=== PATIENT | female | born 1995 | race Caucasian/White ===

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

== ENCOUNTER 2017-01-06 21:00 | Outpatient (CLI) | payer OTHER ==
[~2017-01-06] VITALS: Ht 157.5 cm; Wt 86.6 kg
[~2017-01-06 21:00] MED LIST: PRENAT PO
[2017-01-06] MEDS ORDERED: ONDANSETRON 4 MG INJ IV STA (21:33)
[2017-01-06 21:52] LABS: ADD UMIC NO; URINE BILIRUBIN (Dip) NEGATIVE (NEGATIVE); URINE BLOOD (Dip) NEGATIVE (NEGATIVE); URINE COLOR LT. YELLOW (YELLOW); URINE GLUCOSE (Dip) NEGATIVE (NEGATIVE); URINE KETONES (Dip) NEGATIVE (NEGATIVE); URINE LEUKOCYTE ESTERASE (Dip) NEGATIVE (NEGATIVE); URINE NITRITE (Dip) NEGATIVE (NEGATIVE); URINE TOTAL PROTEIN (Dip) NEGATIVE (NEGATIVE); URINE UROBILINOGEN (Dip) 1.0 E.U./dL (0.1-1.0)
[2017-01-06] MEDS ORDERED: LACTATED RINGER'S 1,000 ML IV ONE (22:00)
[2017-01-06] MEDS ORDERED: LACTATED RINGER'S 1,000 ML IV SCH (22:00)
[2017-01-06 22:03] VITALS: BP 110/54; PULSE 75; RESP 18
[2017-01-06 22:04] LABS: ADD SCAN DIFF NO
[2017-01-06 22:06] LABS: BASOPHILS % 0.1 % (0.0-2.0); EOSINOPHILS # 0.1 10^3/ul (0.0-0.5); HEMATOCRIT 28.5 % (37.0-47.0); HEMOGLOBIN 9.7 g/dl (12.0-16.0); LYMPHOCYTES # 1.3 10^3/ul (0.8-2.9); LYMPHOCYTES % 15.7 % (18.0-55.0); MEAN CORPUSCULAR VOLUME 88.2 fl (72.0-104.0); MEAN PLATELET VOLUME 9.7 fl (7.4-10.4); MONOCYTE # 0.6 10^3/ul (0.3-0.9); MONOCYTES % 7.9 % (0.0-13.0); NEUTROPHILS % 74.8 % (30.0-74.0); PLATELET COUNT 319 10^3/UL (140-415); RED BLOOD COUNT 3.23 10^6/ul (4.20-5.40); RED CELL DISTRIBUTION WIDTH 12.9 % (11.5-14.5)
[2017-01-06 22:21] LABS: ALBUMIN 3.2 g/dl (3.3-4.9); POTASSIUM 3.3 mmol/L (3.5-5.1)
[2017-01-06 22:24] LABS: ALBUMIN/GLOBULIN RATIO 0.96; BILIRUBIN,INDIRECT 0.1 mg/dl (0-1.1); BILIRUBIN,TOTAL 0.1 mg/dl (0.2-1.3); CALCIUM 8.5 mg/dl (8.4-10.2); CREATININE 0.36 mg/dl (0.44-1.00); TOTAL PROTEIN 6.5 g/dl (6.1-8.1)
--- NOTE | 2017-01-06 23:06 | RADRPT ---
PROCEDURE: Ultrasound of the abdomen. CLINICAL INDICATION: Right upper quadrant pain. TECHNIQUE: Sonographic images of the abdomen were performed. COMPARISON: No pertinent prior examinations were submitted for comparison. FINDINGS: Liver: The liver is mildly increased in echogenicity and enlarged, measuring approximately 17.5 cm. The hepatic veins and portal veins are patent with appropriate directional flow. No intrahepatic du ctal dilatation is seen. Gallbladder: The gallbladder is not distended and has normal wall thickness. Multiple stones are no nikko within the gallbladder. No definite pericholecystic free fluid is seen. The common duct measure s 4.0 mm. Pancreas: There is limited evaluation of the pancreatic body and tail. The visualized portions of the pancreas are unremarkable. Kidneys: The right kidney measures 11.3 cm. There is normal corticomedullary differentiation. Ther e is no evidence of renal calculus or hydronephrosis. IVC: The visualized portion of the inferior vena cava is unremarkable. Aorta: Normal in size. Free fluid: None. IMPRESSION: Hepatomegaly and hepatic steatosis. Cholelithiasis. RPTAT: HIKT .Jose Khanna MD, Date Time Electronically viewed and signed by .Jose Khanna MD, on 01/06/2017 23:06 .T/
[2017-01-06] MEDS ORDERED: morphine 4 MG/ML VIAL IV ONE (23:25)
[2017-01-06] MEDS ORDERED: CEFTRIAXONE 1 GM/50 ML (PMX) 50 ML IVPB ONE (23:30)
[2017-01-06] MEDS ORDERED: SOD CHLORIDE 0.9% 1,000 ML IV SCH (23:30)
--- NOTE | 2017-01-07 02:41 | TRIAGE ---
OB Triage Datetime Report Generated by CPN: 01/07/2017 02:41 Datetime: 01/07/2017 02:13 Pain Assessment Pain Scale: 2 Pain Presence: Constant Pain Type: Ache Pain Location: Abdomen Datetime: 01/07/2017 01:20 Labor Evaluation Frequency: 0 Monitor Mode: External Resting Tone [place]: Relaxed Pain Assessment Pain Scale: 3 Pain Presence: Constant Pain Type: Stabbing; Pressure Pain Location: Abdomen Datetime: 01/07/2017 00:35 Stage of : OB Triage Monitor Mode: External Resting Tone [place]: Relaxed Pain Assessment Pain Scale: 4 Pain Presence: Constant Pain Type: Sharp Pain Location: Abdomen Datetime: 01/06/2017 23:55 Pain Assessment Pain Scale: 9 Pain Presence: Constant Pain Type: Sharp; Stabbing Pain Location: Abdomen Datetime: 01/06/2017 22:55 Stage of : OB Triage Nausea/Vomiting: Hx of Nausea/Vomiting Monitor Mode: External Quality: Mild Pattern: Normal: <= 5 Contractions in 10 Minutes Resting Tone [place]: Relaxed Heart Rate FHR Baseline Rate: 140 Monitor Mode: External US FHR Baseline Changes: No Baseline Change Variability: Moderate 6-25 bpm Category: Category I Pain Assessment Pain Scale: 8 Pain Presence: Constant Pain Type: Sharp Pain Location: Abdomen Pain Assessment Comments: Pt states nausea better but cont inued pain Datetime: 01/06/2017 22:18 Monitor Mode: External Quality: Mild Pattern: Normal: <= 5 Contractions in 10 Minutes Resting Tone [place]: Relaxed Heart Rate FHR Baseline Rate: 145 Monitor Mode: External US FHR Baseline Changes: No Baseline Change Variability: Moderate 6-25 bpm Accelerations: 10X10 Category: Category I Datetime: 01/06/2017 21:30 Stage of : OB Triage Comments: Baby very difficult to monitor d/t GA and pt position Datetime: 01/06/2017 21:20 Time of Arrival: 01/06/2017 20:53 EGA: 24.0 Arrived By: Wheelchair Arrived From: Home Chief Complaint: w/ c/o gallbladder pain and low blood pressure Movement: Present Contractions: Denies/Absent Rupture of Membranes: Denies Vaginal Bleeding: None Vaginal Discharge: Denies Recent Sexual Intercouse: Denies Abdominal Trauma: Not Applicable Patient Complaints: Nausea; Vomiting; Epigastric Pain Time Provider Notified: 01/06/2017 21:30 Provider Notified: Dr Prescott Initial Plan: IV hydration, labs, abd u/s Datetime: 01/06/2017 21:08 Stage of : OB Triage Maternal Assessment Level of Consciousness: Fully Conscious Headache: Denies Blurred Vision: No Nausea/Vomiting: Present RUQ Epigastric Pain: Present Facial Edema: None Labor Evaluation Frequency: placed Monitor Mode: External Resting Tone [place]: Relaxed Monitor Mode: External US Comments: FHT 150 Pain Assessment Pain Scale: 9 Pain Presence: Constant Pain Type: Sharp; Stabbing Pain Location: Abdomen Pain Assessment Comments: Pt states "gallstone pain" Datetime: 12/25/2016 18:19 Stage of : OB Triage Datetime: 12/25/2016 18:03 Stage of : OB Triage Assessment Type: Triage Maternal Assessment Level of Consciousness: Fully Conscious DTR's/Clonus: DTRs 2+; No Clonus Headache: Denies Blurred Vision: No Respiratory Effort: Unlabored; Regular Rhythm; Equal Expansion Breath Sounds, Left: Clear and Equal Breath Sounds, Right: Clear and Equal Nausea/Vomiting: Denies RUQ Epigastric Pain: Denies Facial Edema: None Temperature Route: Axillary Fall Risk Assessment History of Falling: (0) No Secondary Diagnosis: (0) No Ambulatory Aid: (0) Bedrest/Nurse Assist IV Therapy: (0) No Gait: (0) Normal/Bedrest/Immobile Mental Status: (0) Oriented to Own Ability Fall Score: 0 Fall Risk Score Definition: No Risk: No action required Heart Rate FHR Baseline Rate: 155 Monitor Mode: External US Variability: Moderate 6-25 bpm Decelerations: None Pain Assessment Pain Scale: 0 Pain Presence: None/Denies Pain Type: N/A Pain Goal: 3 Pain Relief Measures: Comfort Measures Datetime: 12/25/2016 18:02 EGA: 21.2 Datetime: 12/25/2016 17:59 Time of Arrival: 12/18/2016 17:25 Arrived By: Ambulatory Arrived From: Home Chief Complaint: STATES WAS SENT BY DR. PRESCOTT OFFICE FOR U/A C_S. WAS AT [facility] 2-3 DAYS AGO A ND GIVEN PRESCRIPTION FOR UTI. , DENIES BLEEDING OR LEAKING OF FLUID Movement: Present Contractions: Irregular Rupture of Membranes: Denies Vaginal Bleeding: None Vaginal Discharge: Denies Recent Sexual Intercouse: Yes Abdominal Trauma: Not Applicable Patient Complaints: None Time Provider Notified: 12/25/2016 17:35 Provider Notified: GENIE Initial Plan: MONITOR, X 10 MIN. U/A C_S
--- NOTE | 2017-01-07 07:11 | PN ---
Date/Time of Note Date/Time of Note DATE: 01/07/17 TIME: 05:41 OB Subjective Subjective Subjective c/o severe RUQ pain 9/10 vomiting x4 stayed in [facility] few days recently for same problem OB Objective Objective Objective vss afebrile rt CVA +++tenderness RUQ and epigatrium tenderness abdomen soft no usterine contraction result U/A neg wbc 8000 cmp nl u/s abdomen cholelithiasis no inflamation HEENT: WNL Heart: Rhythm Normal Lungs: Clear, Equal Abdomen: WNL Extremities: Normal Reflexes: Normal OB Assessment/Plan Other Assessment: IUP 24W RUQ PAIN VOMITING Other plan: IV hydration rocephin 1gm M-S- - - -4-m-g- -d--/--s- -h-o-m-yao- NOELLE PRESCOTT MD January 07, 2017 07:11
== END 2017-01-07 02:27 | disposition home or self-care (01) ==
LOC: OBT 21:00 → L-D 21:01 → OBT 01-07 02:27
PROVIDERS: ATTEND Obstetrics & Gynecology
DX: O26.892 Other specified pregnancy related conditions, second trimester (principal); R10.11 Right upper quadrant pain; O21.2 Late vomiting of pregnancy; O99.612 Diseases of the digestive system complicating pregnancy, second trimester; K80.20 Calculus of gallbladder without cholecystitis without obstruction; Z3A.24 24 weeks gestation of pregnancy
CPT/HCPCS: 76705; 80053; 81003; 82150; 83690; 85025; 87086; J0696; J2270; J2405; J7030; J7120; 36415; 96360; 96361; 96365; 96374; 96375; G0463

== ENCOUNTER 2017-02-12 17:34 | Outpatient (CLI) | payer OTHER ==
[~2017-02-12] VITALS: Ht 157.5 cm; Wt 89.8 kg
[2017-02-12 17:55] VITALS: Ht 157.5 cm; Wt 89.8 kg
[2017-02-12 17:56] VITALS: BP 101/52; PULSE 78; RESP 18
[2017-02-12 18:41] LABS: ADD UMIC NO; UR BILIRUBIN (Dip) NEGATIVE (NEGATIVE); UR BLOOD (Dip) NEGATIVE (NEGATIVE); UR CLARITY CLEAR (CLEAR); UR COLOR LT. YELLOW (YELLOW); UR GLUCOSE (Dip) NEGATIVE (NEGATIVE); UR KETONES (Dip) NEGATIVE (NEGATIVE); UR LEUKOCYTE ESTERASE (Dip) NEGATIVE (NEGATIVE); UR NITRITE (Dip) NEGATIVE (NEGATIVE); UR TOTAL PROTEIN (Dip) NEGATIVE (NEGATIVE); UR UROBILINOGEN (Dip) 1.0 E.U./dL (0.1-1.0)
--- NOTE | 2017-02-12 18:44 | RADRPT ---
PROCEDURE: Ultrasound OB cervical length CLINICAL INDICATION: Contractions. Pain. TECHNIQUE: Sonographic evaluation to assess the cervical length was performed. Transabdominal and transvaginal imaging of the gravid uterus was performed. COMPARISON: Abdominal ultrasound dated 01/06/2017. FINDINGS: Single live intrauterine with cardiac activity is identified with a heart rate of 13 9 beats per minute. There is a cephalic lie and an anterior, grade 0 placenta. The cervical length e quals approximately 3.6 cm, within normal limits. IMPRESSION: 1. Cervical length equals 3.6 cm. 2. Single viable intrauterine gestation. RPTAT: HLBP .Bhupendra Lazcano MD, MD Date Time Electronically viewed and signed by .Bhupendra Lazcano MD, on 02/12/2017 18:44 .P/
[2017-02-12] MEDS ORDERED: LACTATED RINGER'S 1,000 ML IV* SCH (20:30)
[2017-02-12 21:12] LABS: ADD SCAN DIFF NO
[2017-02-12 21:13] LABS: BASOPHILS % 0.1 % (0.0-2.0); EOSINOPHILS # 0.1 10^3/ul (0.0-0.5); EOSINOPHILS % 0.5 % (0.0-7.0); HEMATOCRIT 25.4 % (37.0-47.0); HEMOGLOBIN 8.5 g/dl (12.0-16.0); LYMPHOCYTES # 1.6 10^3/ul (0.8-2.9); LYMPHOCYTES % 16.8 % (18.0-55.0); MEAN CORPUSCULAR HEMOGLOBIN 28.7 pg (29.0-33.0); MEAN CORPUSCULAR HGB CONC 33.5 g/dl (32.0-37.0); MEAN CORPUSCULAR VOLUME 85.8 fl (72.0-104.0); MEAN PLATELET VOLUME 9.6 fl (7.4-10.4); MONOCYTE # 0.6 10^3/ul (0.3-0.9); MONOCYTES % 6.3 % (0.0-13.0); NEUTROPHIL # 7.2 10^3/ul (1.6-7.5); NEUTROPHILS % 75.8 % (30.0-74.0); PLATELET COUNT 317 10^3/UL (140-415); RED BLOOD COUNT 2.96 10^6/ul (4.20-5.40); RED CELL DISTRIBUTION WIDTH 12.6 % (11.5-14.5); WHITE BLOOD COUNT 9.5 10^3/ul (4.8-10.8)
[2017-02-12 21:40] LABS: ALBUMIN/GLOBULIN RATIO 1.42; BILIRUBIN,INDIRECT 0.1 mg/dl (0-1.1); BILIRUBIN,TOTAL 0.1 mg/dl (0.2-1.3); CREATININE 0.47 mg/dl (0.44-1.00); POTASSIUM 3.8 mmol/L (3.5-5.1); TOTAL PROTEIN 6.8 g/dl (6.1-8.1)
--- NOTE | 2017-02-12 22:53 | PN ---
Triage Information Date/Time 02/12/17 Weeks of Gestation 29w2d : 1 Para: 0 Diabetes: none Hypertention: none Additional information c/o lower abdominal cramping pain with pressure pain level 10/10 intermittent Objective CVA neg abdomen soft no tenderness Vital Signs Date Time Temp Pulse Resp B/P Pulse Ox O2 Delivery O2 Flow Rate FiO2 02/12/17 17:56 98.4 78 18 101/52 Room Air Heart Rate: 140's Contractions: None Results/Medications Result Diagram: 02/12/17210102/12/172101 Results 24 hrs Laboratory Tests Test 02/12/17 17:45 02/12/17 21:02 Urine Color LT. YELLOW Urine Clarity CLEAR Urine pH 6.5 Urine Specific [place] 1.015 Urine Ketones NEGATIVE Urine Nitrite NEGATIVE Urine Bilirubin NEGATIVE Urine Urobilinogen 1.0 E.U./dL Urine Leukocyte Esterase NEGATIVE Urine Hemoglobin NEGATIVE Urine Glucose NEGATIVE Urine Total Protein NEGATIVE White Blood Count 9.5 Red Blood Count 2.96 L Hemoglobin 8.5 L Hematocrit 25.4 L Mean Corpuscular Volume 85.8 Mean Corpuscular Hemoglobin 28.7 L Mean Corpuscular Hemoglobin Concent 33.5 Red Cell Distribution Width 12.6 Platelet Count 317 Mean Platelet Volume 9.6 Neutrophils % 75.8 H Lymphocytes % 16.8 L Monocytes % 6.3 Eosinophils % 0.5 Basophils % 0.1 Nucleated Red Blood Cells % 0.0 Neutrophils # 7.2 Lymphocytes # 1.6 Monocytes # 0.6 Eosinophils # 0.1 Basophils # 0.0 Nucleated Red Blood Cells # 0.0 Sodium Level 137 Potassium Level 3.8 Chloride Level 107 Carbon Dioxide Level 21 Anion Gap 13 Blood Urea Nitrogen 6 L Creatinine 0.47 Glucose Level 79 Calcium Level 9.0 Total Bilirubin 0.1 L Direct Bilirubin 0.00 Indirect Bilirubin 0.1 Aspartate Amino Transf (AST/SGOT) 18 Alanine Aminotransferase (ALT/SGPT) 30 Alkaline Phosphatase 160 H Total Protein 6.8 Albumin 4.0 Globulin 2.80 Albumin/Globulin Ratio 1.42 Medications Current Medications Lactated Ringer's (Lr) 1,000 ml @ 125 mls/hr Q8H IV* Last administered on 02/12t 21:03; Admin Dose 125 MLS/HR; Start 02/12/17 at 20:30 Imaging Results CVL 3.6 Assessment/Plan IUP 29w2d pelvic pain resolved after IV hydration plan discharge home with instruct to increase fluid intakeand routine labor intructions NOELLE PRESCOTT MD Feb 12, 2017 22:53
--- NOTE | 2017-02-13 01:12 | TRIAGE ---
OB Triage Datetime Report Generated by CPN: 02/13/2017 01:11 Datetime: 02/12/2017 19:08 Monitor Mode: External Monitor Mode: External US Datetime: 02/12/2017 18:17 Labor Evaluation Frequency: none Monitor Mode: External Resting Tone [place]: Relaxed Contraction Comments: no ucs contractions noted at this time Heart Rate FHR Baseline Rate: 135 Monitor Mode: External US Variability: Moderate 6-25 bpm Decelerations: None Category: Category I Datetime: 02/12/2017 18:04 Stage of : OB Triage Datetime: 02/12/2017 17:53 Assessment Type: Triage Maternal Assessment Level of Consciousness: Fully Conscious DTR's/Clonus: DTRs 2+; No Clonus Headache: Bilateral Blurred Vision: No Respiratory Effort: Unlabored; Regular Rhythm; Equal Expansion Breath Sounds, Left: Clear and Equal Breath Sounds, Right: Clear and Equal Nausea/Vomiting: Hx of Nausea/Vomiting (Annotations: states vomitted 3x today) RUQ Epigastric Pain: Denies Lower Extremities Edema: None Upper Extremities Edema: None Facial Edema: None Fall Risk Assessment History of Falling: (0) No Secondary Diagnosis: (0) No Ambulatory Aid: (0) Bedrest/Nurse Assist IV Therapy: (0) No Gait: (0) Normal/Bedrest/Immobile Mental Status: (0) Oriented to Own Ability Fall Score: 0 Fall Risk Score Definition: No Risk: No action required Datetime: 02/12/2017 17:50 Time of Arrival: 02/12/2017 17:32 EGA: 29.2 Arrived By: Ambulatory Arrived From: Home Chief Complaint: cramping and back pain since last night - states took tylenol earlier today. garett es any bleeding. states white/yellowish foul smelling discharge Movement: Present Rupture of Membranes: Denies Vaginal Bleeding: None Vaginal Discharge: Present Recent Sexual Intercouse: Denies Abdominal Trauma: Not Applicable Patient Complaints: Cramping; Back Pain Time Provider Notified: 02/12/2017 18:04 Provider Notified: Daniella Initial Plan: EFM, UCs, notify MD, monitor V/S - Orders for UA _ CL given. CBC, CMP also done. Datetime: 01/07/2017 03:02 Vaginal Exam Membrane Status: Intact Datetime: 01/06/2017 21:20 EGA: 24.0 Datetime: 12/25/2016 18:03 Fall Score: 0 Fall Risk Score Definition: No Risk: No action required Datetime: 12/25/2016 18:02 EGA: 21.2
== END 2017-02-12 22:40 | disposition home or self-care (01) ==
LOC: L-D 17:34 → OBT 17:34
PROVIDERS: ATTEND Obstetrics & Gynecology
DX: O26.893 Other specified pregnancy related conditions, third trimester (principal); R10.2 Pelvic and perineal pain; R10.9 Unspecified abdominal pain; Z3A.29 29 weeks gestation of pregnancy
CPT/HCPCS: 36415; 76817; 80053; 81003; 85025; 96360; J7120; Z7500; G0463

== ENCOUNTER 2017-02-15 23:12 | Outpatient (CLI) | payer OTHER ==
[~2017-02-15] VITALS: Ht 157.5 cm; Wt 91.1 kg
[2017-02-15 23:46] VITALS: BP 103/55; PULSE 81; RESP 19; Ht 157.5 cm; Wt 91.1 kg
--- NOTE | 2017-02-16 00:45 | RADRPT ---
PROCEDURE: US right upper quadrant CLINICAL INDICATION: Abdominal pain TECHNIQUE: Multiple real-time images were acquired of the patient's abdomen utilizing a high resol ution transducer. COMPARISON: 01/06/2017 FINDINGS: Liver: Normal in size, contour and echogenicity. The maximum dimension estimated at 17.4 cm. Norm al directional blood flow within the patent main portal vein is noted. . Gallbladder: Multiple mobile echogenic foci with distal acoustic shadowing are present. . There is no evidence of gallbladder wall thickening or pericholecystic fluid. No sonographic Gonzales's sign i s reported. Common bile duct: Normal; 4.3 mm. There is no evidence for choledocholithiasis. Right Kidney: Normal; maximum length measured at approximately 12.1 cm. Left Kidney: Normal; maximum length measured at approximately 11.8 cm. Pancreas: Visualized portions are normal. The tail is partially obscured by bowel gas. Abdominal aorta: Unremarkable the proximal segment measuring 1.9 cm. Inferior vena cava: No abnormality identified. Spleen: Normal in size the maximum dimension 10.7 cm. RPTAT:HJJR IMPRESSION: Cholelithiasis without evidence of cholecystitis, findings stable compared to 01/06/2017. Physician August Date Time Electronically viewed and signed by Physician August on 02/16/2017 00:45 JR/
--- NOTE | 2017-02-16 00:46 | RADRPT ---
PROCEDURE: Obstetrical ultrasound greater than 14 weeks CLINICAL INDICATION: Evaluate cervical length TECHNIQUE: Real time sonographic imaging of the gravid uterus is performed transabdominally and mu ltiple static martini scale images are submitted to the PACS for review COMPARISON: 02/12/2017 FINDINGS: The cervical os is closed with a normal cervical length of 3.7 cm. RPTAT:HJJR IMPRESSION: 1. Closed cervical length estimated at 3.7 cm, previously 3.6 cm on the study of 02/12/2017. Physician August Date Time Electronically viewed and signed by Physician August on 02/16/2017 00:46 JR/
[2017-02-16 00:56] LABS: ADD SCAN DIFF NO
[2017-02-16 01:01] LABS: BASOPHILS % 0.3 % (0.0-2.0); EOSINOPHILS # 0.1 10^3/ul (0.0-0.5); EOSINOPHILS % 0.7 % (0.0-7.0); HEMATOCRIT 26.4 % (37.0-47.0); HEMOGLOBIN 8.6 g/dl (12.0-16.0); LYMPHOCYTES # 1.4 10^3/ul (0.8-2.9); LYMPHOCYTES % 18.9 % (18.0-55.0); MEAN CORPUSCULAR HEMOGLOBIN 28.4 pg (29.0-33.0); MEAN CORPUSCULAR HGB CONC 32.6 g/dl (32.0-37.0); MEAN CORPUSCULAR VOLUME 87.1 fl (72.0-104.0); MEAN PLATELET VOLUME 9.7 fl (7.4-10.4); MONOCYTE # 0.7 10^3/ul (0.3-0.9); MONOCYTES % 8.6 % (0.0-13.0); NEUTROPHIL # 5.3 10^3/ul (1.6-7.5); NEUTROPHILS % 70.6 % (30.0-74.0); PLATELET COUNT 345 10^3/UL (140-415); RED BLOOD COUNT 3.03 10^6/ul (4.20-5.40); RED CELL DISTRIBUTION WIDTH 12.5 % (11.5-14.5); WHITE BLOOD COUNT 7.5 10^3/ul (4.8-10.8)
[2017-02-16 01:08] LABS: ADD UMIC NO; UR BILIRUBIN (Dip) NEGATIVE (NEGATIVE); UR BLOOD (Dip) NEGATIVE (NEGATIVE); UR CLARITY CLEAR (CLEAR); UR COLOR LT. YELLOW (YELLOW); UR GLUCOSE (Dip) NEGATIVE (NEGATIVE); UR KETONES (Dip) NEGATIVE (NEGATIVE); UR LEUKOCYTE ESTERASE (Dip) NEGATIVE (NEGATIVE); UR NITRITE (Dip) NEGATIVE (NEGATIVE); UR TOTAL PROTEIN (Dip) NEGATIVE (NEGATIVE); UR UROBILINOGEN (Dip) 0.2 E.U./dL (0.1-1.0)
[2017-02-16 01:19] LABS: ALBUMIN 3.6 g/dl (3.3-4.9); ALBUMIN/GLOBULIN RATIO 1.28; BILIRUBIN,INDIRECT 0.1 mg/dl (0-1.1); BILIRUBIN,TOTAL 0.1 mg/dl (0.2-1.3); CREATININE 0.42 mg/dl (0.44-1.00); TOTAL PROTEIN 6.4 g/dl (6.1-8.1)
--- NOTE | 2017-02-16 02:04 | QN ---
Documentation Comment Laborist Dr Brewer's pt 21 y.o. G1 , withan IUP of 30 weeks with reports of spotting once today about 2 hours post coitus, and lower abdominal pain R>L. No nausea or vomiting. Normal BM. +FM. No leaking. No contractions. Pt says she has been to [facility] also for the same reason and was told she had a UTI. PMHX: h/o gallstones. PSHx: LSC ovarian cystectomy. All: sulfa. BP 103/55 T=98.3 Abdomen: soft, non-distended, 2+ tender in b/l lower quadrants and 1+ tender in the right mid belly. NT all upper quadrants. NST: baseline 140 bpm with accels to 160 bpm. No decels. No UC's. U/A negative. RUQ US + gallstones, no cholecystitis. CX 3.7 cm, closed. WBC 7.5. Hgb 8.6. A: IUP at WBC 7.5 Hgb 8.6 A: Lower abdominal pain- unclear etiology. Anemia. P: D/C pt home. Pt reassured. NANCIE CASTILLO MD Feb 16, 2017 01:53
--- NOTE | 2017-02-16 03:03 | TRIAGE ---
OB Triage Datetime Report Generated by CPN: 02/16/2017 03:02 Datetime: 02/16/2017 01:36 Stage of : OB Triage Labor Evaluation Frequency: 0 Monitor Mode: External Resting Tone [place]: Relaxed Heart Rate FHR Baseline Rate: 140 Monitor Mode: External US FHR Baseline Changes: No Baseline Change Variability: Moderate 6-25 bpm Accelerations: 15X15 Decelerations: None Category: Category I Datetime: 02/16/2017 01:00 Labor Evaluation Frequency: NONE Monitor Mode: External Resting Tone [place]: Relaxed Heart Rate FHR Baseline Rate: 135 Monitor Mode: External US Variability: Moderate 6-25 bpm Accelerations: 15X15 Decelerations: None Category: Category I Datetime: 02/16/2017 00:06 Pain Assessment Pain Scale: 7 Pain Presence: Constant Pain Type: Sharp; Stabbing; Pressure Pain Location: Abdomen; Back Datetime: 02/16/2017 00:02 Vaginal Exam Dilatation (cms): 0.5 Effacement (%): 60 Station: -3 Exam By: Rosales Gil RN Vaginal Bleeding: None Cervix, Consistency: Soft Cervix, Position: Midposition Datetime: 02/16/2017 00:00 Labor Evaluation Frequency: NONE Monitor Mode: External Resting Tone [place]: Relaxed Heart Rate FHR Baseline Rate: 140 Monitor Mode: External US Variability: Moderate 6-25 bpm Accelerations: 15X15 Decelerations: None Category: Category I Datetime: 02/15/2017 23:39 Time of Arrival: 02/15/2017 23:08 EGA: 29.5 Arrived By: Wheelchair Arrived From: Home Chief Complaint: Abdominal pain Movement: Present Contractions: Denies/Absent Rupture of Membranes: Denies Vaginal Bleeding: None Vaginal Discharge: Denies Recent Sexual Intercouse: Yes Abdominal Trauma: Not Applicable Patient Complaints: Back Pain; Headache; Nausea; Other Additional Patient Complaints: Back pain, nausea and headache Time Provider Notified: 02/15/2017 23:47 Provider Notified: Dr. Brewer Initial Plan: CEFM Datetime: 02/15/2017 23:28 Stage of : OB Triage Assessment Type: Triage Maternal Assessment Level of Consciousness: Fully Conscious DTR's/Clonus: DTRs 2+; No Clonus Headache: Generalized (Annotations: 5/10) Blurred Vision: No Respiratory Effort: Unlabored; Regular Rhythm; Equal Expansion Breath Sounds, Left: Clear and Equal Breath Sounds, Right: Clear and Equal Nausea/Vomiting: Denies RUQ Epigastric Pain: Denies Lower Extremities Edema: None Degree: None Upper Extremities Edema: None Degree: None Facial Edema: None Temperature Route: Oral Fall Risk Assessment History of Falling: (0) No Secondary Diagnosis: (0) No Ambulatory Aid: (0) Bedrest/Nurse Assist IV Therapy: (0) No Gait: (0) Normal/Bedrest/Immobile Mental Status: (0) Oriented to Own Ability Fall Score: 0 Fall Risk Score Definition: No Risk: No action required Pain Assessment Pain Scale: 7 Pain Presence: Constant Pain Type: Sharp; Stabbing; Pressure Pain Location: Abdomen; Back Pain Goal: 4 Datetime: 02/15/2017 23:25 Monitor Mode: External (Annotations: Applied) Monitor Mode: External US (Annotations: Applied) Datetime: 02/12/2017 22:30 Stage of : OB Triage Datetime: 02/12/2017 22:00 Stage of : OB Triage Labor Evaluation Frequency: Occ. cramping Monitor Mode: External Quality: Mild Pattern: Normal: <= 5 Contractions in 10 Minutes Resting Tone [place]: Relaxed Heart Rate FHR Baseline Rate: 135 Monitor Mode: External US FHR Baseline Changes: No Baseline Change Variability: Moderate 6-25 bpm Accelerations: 10X10 Decelerations: None Category: Category I Comments: WNL for GA Datetime: 02/12/2017 21:00 Stage of : OB Triage Labor Evaluation Frequency: Occ. cramping Monitor Mode: External Quality: Mild Pattern: Normal: <= 5 Contractions in 10 Minutes Resting Tone [place]: Relaxed Heart Rate FHR Baseline Rate: 140 Monitor Mode: External US FHR Baseline Changes: No Baseline Change Variability: Moderate 6-25 bpm Accelerations: 10X10 Decelerations: None Comments: WNL for GA Datetime: 02/12/2017 20:52 Monitor Mode: External Monitor Mode: External US Datetime: 02/12/2017 20:00 Stage of : OB Triage Labor Evaluation Frequency: Occ. cramping Monitor Mode: External Quality: Mild Pattern: Normal: <= 5 Contractions in 10 Minutes Resting Tone [place]: Relaxed Heart Rate FHR Baseline Rate: 135 Monitor Mode: External US FHR Baseline Changes: No Baseline Change Variability: Moderate 6-25 bpm Accelerations: 10X10 Decelerations: None Category: Category I Comments: WNL for GA Datetime: 02/12/2017 19:30 Assessment Type: Triage Maternal Assessment Level of Consciousness: Fully Conscious DTR's/Clonus: DTRs 2+; No Clonus Headache: Denies Blurred Vision: No Respiratory Effort: Unlabored; Regular Rhythm; Equal Expansion Breath Sounds, Left: Clear and Equal Breath Sounds, Right: Clear and Equal Nausea/Vomiting: Denies RUQ Epigastric Pain: Denies Lower Extremities Edema: None Degree: None Upper Extremities Edema: None Degree: None Facial Edema: None Fall Risk Assessment History of Falling: (0) No Secondary Diagnosis: (0) No Ambulatory Aid: (0) Bedrest/Nurse Assist IV Therapy: (0) No Gait: (0) Normal/Bedrest/Immobile Mental Status: (0) Oriented to Own Ability Fall Score: 0 Fall Risk Score Definition: No Risk: No action required Datetime: 02/12/2017 17:53 Fall Score: 0 Fall Risk Score Definition: No Risk: No action required Datetime: 02/12/2017 17:50 EGA: 29.2 Datetime: 01/06/2017 21:20 EGA: 24.0 Datetime: 12/25/2016 18:03 Fall Score: 0 Fall Risk Score Definition: No Risk: No action required Datetime: 12/25/2016 18:02 EGA: 21.2
== END 2017-02-16 01:45 | disposition home or self-care (01) ==
LOC: OBT 23:12 → L-D 23:12 → OBT 02-16 01:45
PROVIDERS: ATTEND Obstetrics & Gynecology
DX: O26.893 Other specified pregnancy related conditions, third trimester (principal); R10.31 Right lower quadrant pain; O99.012 Anemia complicating pregnancy, second trimester; Z3A.30 30 weeks gestation of pregnancy
CPT/HCPCS: 76700; 76817; 80053; 81003; 85025

== ENCOUNTER 2017-03-10 07:32 | Outpatient (CLI) | payer OTHER ==
[~2017-03-10] VITALS: Ht 157.5 cm; Wt 90.8 kg
[2017-03-10 07:59] VITALS: BP 105/55; PULSE 73; Ht 157.5 cm; Wt 90.8 kg
[2017-03-10] MEDS ORDERED: URSO300C3 PO (08:01)
[2017-03-10] MEDS ORDERED: HYDR-842 PO (08:01)
[2017-03-10] MEDS ORDERED: DIPHENHYDRAMINE 25 MG CAP PO ONE (09:30)
[2017-03-10] MEDS ORDERED: CHOLESTYRAMINE 4 GM PACKET PO SCH (10:30)
[2017-03-10 10:44] LABS: ALBUMIN 3.3 g/dl (3.3-4.9); BILIRUBIN,INDIRECT 0.1 mg/dl (0-1.1); BILIRUBIN,TOTAL 0.1 mg/dl (0.2-1.3); TOTAL PROTEIN 5.9 g/dl (6.1-8.1)
--- NOTE | 2017-03-10 11:35 | CONS ---
Date/Time of Note Date/Time of Note DATE: 03/10/17 TIME: 11:24 Consultation Date/Type/Reason Admit Date/Time March 10, 2017 OB triage consult Reason for Consultation This patient is a 21 years old 1 para 0 with estimated date of confinement of April 24, 2017 which makes her now 33 weeks . she developed cholestasis of and today she came in due to intensity of the pruritus . she is already given cholestyramine 8 g On examination although she is taking the ursodiol 300 mg 3 times daily she is still continue having pruritus of the extremities on the palms as well as her chest. Her general vital signs are normal with blood pressure 105/55, pulse rate 73, respiration 18, temperature 98.1, Laboratory Tests Test 03/10/17 10:00 Total Bilirubin 0.1mg/dl Direct Bilirubin 0.00mg/dl Indirect Bilirubin 0.1mg/dl Aspartate Amino Transf (AST/SGOT) 29IU/L Alanine Aminotransferase (ALT/SGPT) 57IU/L Alkaline Phosphatase 253IU/L Total Protein 5.9g/dl Albumin 3.3g/dl Current Medications Medications (Trade) Dose Ordered Sig/Joe Route PRN Reason Start Time Stop Time Status Last Admin Dose Admin Cholestyramine Resin (Questran) 2 pkt ONCE PO 03/10/17 10:30 03/10/17 19:00 03/10/17 10:05 2 PKT Diphenhydramine HCl (Benadryl) 25 mg ONCE ONCE PO 03/10/17 09:30 03/10/17 09:31 DC 03/10/17 10:05 25 MG Constitutional: No chills, No diaphoresis, No disoriented, No febrile, No improved, No no complaints, No other, No poor po, No requiring IVF, No requiring O2 Eyes: No discharge, No no complaints, No other, No pain, No redness, No visual change ENT: No bleeding, No congestion, No discharge, No dysphagia, No no complaints, No other, No pain, No sore throat Respiratory: No cough, No no complaints, No other, No pain, No pleuritic pain, No shortness of breath, No sputum, No wheezing Cardiovascular: No chest pain, No edema, No lightheadedness, No no complaints, No orthopenea, No other, No palpitations, No paroxysmal nocturnal dyspnea Gastrointestinal: No blood, No constipation, No decreased appetite, No diarrhea , No flatus, No nausea, No no complaints, No other, No pain, No passing stool, No vomiting Genitourinary: other (She does not have any contraction for this reason pelvic exam was not performed however the heart rate is normal good variability on the tracing no deceleration no contractions), No bleeding, No discharge, No dysuria, No flank pain, No hematuria, No no complaints Musculoskeletal: No back pain, No bone/joint pain, No neck pain, No no complaints, No other, No restricted range of motion, No swelling Skin: other (She does have pruritus as I mentioned mostly on her hand feet chest and abdominal area), pruritis, No bruising, No erythema, No laceration, No no complaints, No rash, No skin lesions Endocrine: other (Knee-jerk reflexes within normal limits) Lymphatic: No adenopathy, No lymphadema, No no complaints, No other, No tender nodes Psychological: No anxiety, No confusion, No depression, No nl mood/affect, No no complaints, No other, No suicidal Additional Comments On the lab studies basically her liver function tests is normal with almost normal. Level of bilirubin, protein, albumin Elevated, alkaline phosphatase which is not abnormal at this stage of . SGOT SGPT were also normal. She was given Benadryl 25 mg by mouth. Ice pack was used She felt much better and was discharged home with a prescription to take cholestyramine 4 g pack twice a day to continue her Urosodil 300 mg tablets 3 times daily and to do the kick count. She will be delivered after 36 weeks gestation End of dictation Social History Smoking Status: Never smoker Exam/Review of Systems Vital Signs Vitals Vital Signs Date Time Temp Pulse Resp B/P Pulse Ox O2 Delivery O2 Flow Rate FiO2 03/10/17 07:59 98.1 73 105/55 Results Results 24 hrs Laboratory Tests Test 03/10/17 10:00 Total Bilirubin 0.1 L Direct Bilirubin 0.00 Indirect Bilirubin 0.1 Aspartate Amino Transf (AST/SGOT) 29 Alanine Aminotransferase (ALT/SGPT) 57 Alkaline Phosphatase 253 H Total Protein 5.9 L Albumin 3.3 Medications Medications Current Medications Cholestyramine Resin (Questran) 2 pkt ONCE PO Last administered on 03/10/17t 10 :05; Admin Dose 2 PKT; Start 03/10/17 at 10:30; Stop 03/10/17 at 19:00 ANNAMARIE GUSMAN MD Mar 10, 2017 11:34
== END 2017-03-10 11:28 | disposition home or self-care (01) ==
LOC: OBT 07:32 → L-D 07:34 → OBT 11:28
PROVIDERS: ATTEND Obstetrics & Gynecology
DX: O26.613 Liver and biliary tract disorders in pregnancy, third trimester (principal); K83.1 Obstruction of bile duct; Z3A.33 33 weeks gestation of pregnancy
CPT/HCPCS: 80076; 83789; Z7500; Z7610; G0463

== ENCOUNTER 2017-05-04 21:08 | Emergency (ER) | payer OTHER ==
[~2017-05-04] VITALS: Ht 162.6 cm; Wt 85.5 kg
[~2017-05-04 21:08] MED LIST changes: +URSO300C3 PO
[2017-05-04 21:11] VITALS: Ht 162.6 cm; Wt 85.5 kg
[2017-05-04] MEDS ORDERED: ONDANSETRON 4 MG INJ IV STA (21:27)
[2017-05-04] MEDS ORDERED: morphine 4 MG/ML VIAL IV STA (21:27)
--- NOTE | 2017-05-04 22:00 | ERD ---
ER Documentation Chief Complaint Date/Time DATE: 05/04/17 TIME: 21:47 Chief Complaint RUQ abd pain x 2 days HPI This a 21-year-old female who presents the emergency department today complaining of upper abdominal pain for the past 2 days. Patient states she has not taken any medication today for the pain. States she feels nauseated. States that she was told the past she had gallstones prior to her and was supposed to get her gallbladder removed but she has not. Denies any fevers or chills. ROS All systems reviewed and are negative except as per history of present illness. Medications Home Meds Active Scripts Ondansetron Hcl* (Zofran*) 4 Mg Tablet, 4 MG PO Q6H for NAUSEA AND/OR VOMITING, #30 TAB Prov:TAMRA SINGH PA-C 05/04/17 Naproxen* (Naprosyn*) 500 Mg Tablet, 500 MG PO BID Y for PAIN AND/OR INFLAMMATION, #30 TAB Prov:TARMA SINGH PA-C 05/04/17 Hydrocodone/Acetaminophen (Rena Lara 5-325 Tablet) 1 Each Tablet, 1 TAB PO Q6H Y for PAIN, #12 TAB Prov:TAMRA SINGH PA-C 05/04/17 Reported Medications Ursodiol* (Ursodiol*) 300 Mg Capsule, 300 MG PO TID, CAP 03/10/17 Multivit/Min/Fol Ac/Iron/Pren* ( S*) 1 Tab Tab, 1 TAB PO DAILY, TAB 12/25/16 Allergies Allergies: Coded Allergies: Sulfa (Sulfonamide Antibiotics) (Verified Allergy, Mild, 05/04/17) PMhx/Soc History of Surgery: No Anesthesia Reaction: No Hx Neurological Disorder: No Hx Respiratory Disorders: No Hx Cardiac Disorders: No Hx Psychiatric Problems: No Hx Miscellaneous Medical Probl: Yes (GALLSTONES) Hx Alcohol Use: No Hx Substance Use: No Hx Tobacco Use: No Smoking Status: Never smoker Physical Exam Vitals Vital Signs Date Time Temp Pulse Resp B/P Pulse Ox O2 Delivery O2 Flow Rate FiO2 05/04/17 21:11 99.2 83 20 105/51 100 Physical Exam Const: obese NAD Head: Atraumatic Eyes: Normal Conjunctiva ENT: Normal External Ears, Nose and Mouth. Neck: Full range of motion..~ No meningismus. Resp: Clear to auscultation bilaterally Cardio: Regular rate and rhythm, no murmurs Abd: Soft, Epigastric and right upper quadrant tenderness non distended. Normal bowel sounds. No lower abdominal pain. Skin: No petechiae or rashes Back: No midline or flank tenderness Ext: No cyanosis, or edema Neur: Awake and alert Psych: Normal Mood and Affect Result Diagram: 05/04/17213905/04/172139 Results 24 hrs Laboratory Tests Test 05/04/17 19:35 05/04/17 21:40 Urine Color YELLOW Urine Clarity SLIGHTLY CLOUDY Urine pH 8.0 Urine Specific [place] 1.023 Urine Ketones NEGATIVEmg/dL Urine Nitrite NEGATIVEmg/dL Urine Bilirubin NEGATIVEmg/dL Urine Urobilinogen 2+mg/dL Urine Leukocyte Esterase NEGATIVELeu/ul Urine Microscopic RBC 0/HPF Urine Microscopic WBC 2/HPF Urine Squamous Epithelial Cells FEW/HPF Urine Hemoglobin NEGATIVEmg/dL Urine Glucose NEGATIVEmg/dL Urine Total Protein NEGATIVEmg/dl White Blood Count 7.910^3/ul Red Blood Count 4.1510^6/ul Hemoglobin 10.2g/dl Hematocrit 32.7% Mean Corpuscular Volume 78.8fl Mean Corpuscular Hemoglobin 24.6pg Mean Corpuscular Hemoglobin Concent 31.2g/dl Red Cell Distribution Width 14.9% Platelet Count 60365^3/UL Mean Platelet Volume 9.3fl Neutrophils % 68.2% Lymphocytes % 25.4% Monocytes % 5.0% Eosinophils % 1.0% Basophils % 0.3% Nucleated Red Blood Cells % 0.0/100WBC Neutrophils # (Manual) 5.410^3/ul Lymphocytes # 2.010^3/ul Monocytes # 0.410^3/ul Eosinophils # 0.110^3/ul Basophils # 0.010^3/ul Nucleated Red Blood Cells # 0.010^3/ul Sodium Level 140mmol/L Potassium Level 3.5mmol/L Chloride Level 106mmol/L Carbon Dioxide Level 24mmol/L Anion Gap 14 Blood Urea Nitrogen 12mg/dl Creatinine 0.64mg/dl Glucose Level 132mg/dl Calcium Level 8.9mg/dl Total Bilirubin 0.1mg/dl Direct Bilirubin 0.00mg/dl Indirect Bilirubin 0.1mg/dl Aspartate Amino Transf (AST/SGOT) 63IU/L Alanine Aminotransferase (ALT/SGPT) 50IU/L Alkaline Phosphatase 165IU/L Total Protein 7.1g/dl Albumin 4.0g/dl Globulin 3.10g/dl Albumin/Globulin Ratio 1.29 Lipase 121U/L Current Medications Medications (Trade) Dose Ordered Sig/Joe Route PRN Reason Start Time Stop Time Status Last Admin Dose Admin Morphine Sulfate (morphine) 4 mg ONCE STAT IV 05/04/17 21:27 05/04/17 21:28 DC 05/04/17 21:47 Ondansetron HCl (Zofran Inj) 4 mg ONCE STAT IV 05/04/17 21:27 05/04/17 21:28 DC 05/04/17 21:47 Ketorolac Tromethamine (Toradol) 30 mg ONCE STAT IV 05/04/17 22:28 05/04/17 22:29 DC 05/04/17 22:48 DIAGNOSTIC IMAGING REPORT Patient: REG GALLARDO : 1995 Age: 21 Sex: F MR #: [id number] DOS: 05/04/172126 Ordering MD: TAMRA SINGH PA-C Location: [facility] Room/Bed: PROCEDURE: Abdominal ultrasound, limited. CLINICAL INDICATION: Abdominal pain. TECHNIQUE: Multiple real-time images were acquired of the patient's right upper abdomen utilizing a high resolution transducer. COMPARISON: 02/16/2017. FINDINGS: The liver demonstrates normal echogenicity and size measuring 17.6 cm. There is no focal mass or intrahepatic biliary ductal dilatation. The portal vein is patent. The gallbladder is not distended. Multiple echogenic gallstones are identified. There is no pericholecystic fluid or gallbladder wall thickening. The common bile duct measures 3.9 mm in maximal dimension. The pancreas is obscured by overlying bowel gas. No free fluid is identified. The right kidney is normal size and echogenicity measuring 10.1 cm. There is no focal renal mass or echogenic calculus identified. There is no obstructive uropathy. IMPRESSION: Cholelithiasis without ultrasound evidence of cholecystitis. Pancreas obscured by overlying bowel gas. .Jorge Dickerson MD, MD Date Time Electronically viewed and signed by .Jorge Dickerson MD, MD on 05/04/2017 22:28 .T/ CC: TAMRA SINGH PA-C Procedures/MDM This is a 21-year-old female presents emergency department today complaining of upper abdominal pain for the past 2 days. Patient has a known history of gallstones. I do not have record of that here at this hospital. Given patient' s location of pain and known history of gallstones I did obtain laboratory work as well as a right upper quadrant ultrasound. Laboratory workup Shows no elevated white blood cell count. Her hemoglobin is decreased at 10.2 Electrolytes are within normal limits. Glucose is within normal limits. Liver enzymes are very mildly elevated. Bilirubin is within normal limits. Lipase is within normal limits. UA is negative for infection urine test is negative right upper quadrant ultrasound shows cholelithiasis without ultrasound evidence of cholecystitis. Gallbladder is not distended. There is no pericholecystic fluid or gallbladder wall thickening. Common bile duct measures 3.9 mm in maximal dimension. Patient symptoms at this time is consistent with gallstones and biliary colic. Patient also has anemia. Patient recently gave the proximal he 1 month ago and has had vaginal bleeding and also recently started her menstrual cycle again. She did mention that she had passed a large amount of blood yesterday however it stopped. She is scheduled to follow-up with her primary care doctor and technical publications manager in 2 weeks.I have low suspicion for acute surgical abdomen at this time. Patient has no lower abdominal pain. She is afebrile and otherwise well-appearing. Patient was given morphine and Zofran here in the emergency department.She continued to complain of pain and was therefore given Toradol.Patient reported that pain had improved and was asking to go home. Patient also indicated that she was talking to a general surgeon is supposed to have her gallbladder out but they wanted to wait until she is 6 weeks . States she is not heard back about her appointment. I have instructed her that she does need to call her doctor to follow-up on that appointment. Patient understood. Patient was given a prescription for Rena Lara, Naprosyn and Zofran. I did give her instructions about the pain medications and breast-feeding. She was instructed to use formula while using the medications. At this time the patient is stable for discharge and outpatient management. Patient should follow up with their PCP in the next 1-2 days. They may return to the emergency department sooner for any persistent or worsening of symptoms. Patient understood and agreed with the plan. Departure Diagnosis: Primary Impression: Gallstones Condition: TAMRA Goldsmith PA-C May 04, 2017 21:58
[2017-05-04 22:02] LABS: ADD UMIC NO; UR ASCORBIC ACID NEGATIVE (NEGATIVE); UR BILIRUBIN (Dip) NEGATIVE (NEGATIVE); UR BLOOD (Dip) NEGATIVE (NEGATIVE); UR CLARITY SLIGHTLY CLOUDY (CLEAR); UR COLOR YELLOW (YELLOW); UR GLUCOSE (Dip) NEGATIVE (NEGATIVE); UR KETONES (Dip) NEGATIVE (NEGATIVE); UR LEUKOCYTE ESTERASE (Dip) NEGATIVE Leu/ul (NEGATIVE); UR NITRITE (Dip) NEGATIVE (NEGATIVE); UR RBC 0 /HPF (0-5); UR SPECIFIC GRAVITY (Dip) 1.023 (1.003-1.030); UR SQUAMOUS EPITHELIAL CELL FEW /HPF (FEW); UR TOTAL PROTEIN (Dip) NEGATIVE (NEGATIVE); UR UROBILINOGEN (Dip) 2+ mg/dL (NEGATIVE)
[2017-05-04 22:12] LABS: BASOPHILS % 0.3 % (0.0-2.0); EOSINOPHILS # 0.1 10^3/ul (0.0-0.5); HEMATOCRIT 32.7 % (37.0-47.0); HEMOGLOBIN 10.2 g/dl (12.0-16.0); LYMPHOCYTES % 25.4 % (18.0-55.0); MEAN CORPUSCULAR HEMOGLOBIN 24.6 pg (29.0-33.0); MEAN CORPUSCULAR HGB CONC 31.2 g/dl (32.0-37.0); MEAN CORPUSCULAR VOLUME 78.8 fl (72.0-104.0); MEAN PLATELET VOLUME 9.3 fl (7.4-10.4); MONOCYTE # 0.4 10^3/ul (0.3-0.9); NEUTROPHILS % 68.2 % (30.0-74.0); PLATELET COUNT 393 10^3/UL (140-415); RED BLOOD COUNT 4.15 10^6/ul (4.20-5.40); RED CELL DISTRIBUTION WIDTH 14.9 % (11.5-14.5); WHITE BLOOD COUNT 7.9 10^3/ul (4.8-10.8)
[2017-05-04] MEDS ORDERED: KETOROLAC 30 MG INJ IV STA (22:28)
--- NOTE | 2017-05-04 22:28 | RADRPT ---
PROCEDURE: Abdominal ultrasound, limited. CLINICAL INDICATION: Abdominal pain. TECHNIQUE: Multiple real-time images were acquired of the patient's right upper abdomen utilizing a high resolution transducer. COMPARISON: 02/16/2017. FINDINGS: The liver demonstrates normal echogenicity and size measuring 17.6 cm. There is no focal mass or in trahepatic biliary ductal dilatation. The portal vein is patent. The gallbladder is not distended. Multiple echogenic gallstones are identified. There is no pericholecystic fluid or gallbladder wa ll thickening. The common bile duct measures 3.9 mm in maximal dimension. The pancreas is obscured by overlying bowel gas. No free fluid is identified. The right kidney is normal size and echogenicity measuring 10.1 cm. There is no focal renal mass or echogenic calculus identified. There is no obstructive uropathy. IMPRESSION: Cholelithiasis without ultrasound evidence of cholecystitis. Pancreas obscured by overlying bowel gas. .Jorge Dickerson MD, Date Time Electronically viewed and signed by .Jorge Dickerson MD, MD on 05/04/2017 22:28 .T/
[2017-05-04 22:35] LABS: ALBUMIN/GLOBULIN RATIO 1.29; BILIRUBIN,INDIRECT 0.1 mg/dl (0-1.1); BILIRUBIN,TOTAL 0.1 mg/dl (0.2-1.3); CALCIUM 8.9 mg/dl (8.4-10.2); CREATININE 0.64 mg/dl (0.44-1.00); POTASSIUM 3.5 mmol/L (3.5-5.1); TOTAL PROTEIN 7.1 g/dl (6.1-8.1)
[2017-05-04] MEDS ORDERED: HYDR-906 PO (23:19)
[2017-05-04] MEDS ORDERED: ONDA4TAB8 PO (23:20)
[2017-05-04] MEDS ORDERED: NAPR-260 PO (23:20)
[2017-05-04 23:34] VITALS: BP 110/50; PULSE 78; RESP 20; TEMP 99.2
== END 2017-05-04 23:35 | disposition home or self-care (01) ==
LOC: FTE 21:08
DX: K80.20 Calculus of gallbladder without cholecystitis without obstruction (principal); R11.0 Nausea
CPT/HCPCS: 36415; 76705; 80053; 81001; 83690; 85025; 96374; 96375; J1885; J2270; J2405; Z7502; 81003

== ENCOUNTER 2017-06-10 14:32 | Day surgery (SDC) | payer OTHER ==
[2017-06-10] VITALS (10 sets, daily range): BP systolic 101–129; BP diastolic 55–68; PULSE 58–92; RESP 12–26; Ht 157.5 cm; Wt 83.8 kg
[~2017-06-10] VITALS: Ht 157.5 cm; Wt 83.8 kg
[~2017-06-10 14:32] MED LIST changes: +CEFAZOLIN 1 GM INJ ONE; +CEFAZOLIN 2 GM/50 ML (PMX) 50 ML IVPB SCH; +HYDR-906 PO; +NAPR-260 PO; +ONDA4TAB8 PO; +SOD CHLORIDE 0.9% 1,000 ML IV SCH
[2017-06-10 15:51] LABS: BASOPHILS % 0.3 % (0.0-2.0); EOSINOPHILS # 0.1 10^3/ul (0.0-0.5); EOSINOPHILS % 1.9 % (0.0-7.0); HEMATOCRIT 34.6 % (37.0-47.0); HEMOGLOBIN 10.8 g/dl (12.0-16.0); LYMPHOCYTES # 1.6 10^3/ul (0.8-2.9); LYMPHOCYTES % 27.1 % (18.0-55.0); MEAN CORPUSCULAR HEMOGLOBIN 24.4 pg (29.0-33.0); MEAN CORPUSCULAR HGB CONC 31.2 g/dl (32.0-37.0); MEAN CORPUSCULAR VOLUME 78.3 fl (72.0-104.0); MEAN PLATELET VOLUME 9.5 fl (7.4-10.4); MONOCYTE # 0.4 10^3/ul (0.3-0.9); MONOCYTES % 7.7 % (0.0-13.0); NEUTROPHIL # 3.6 10^3/ul (1.6-7.5); NEUTROPHILS % 62.8 % (30.0-74.0); PLATELET COUNT 354 10^3/UL (140-415); RED BLOOD COUNT 4.42 10^6/ul (4.20-5.40); RED CELL DISTRIBUTION WIDTH 15.4 % (11.5-14.5); WHITE BLOOD COUNT 5.7 10^3/ul (4.8-10.8)
[2017-06-10 15:54] LABS: INR 0.93; PROTIME 12.5 Sec (12.2-14.2)
[2017-06-10 15:55] LABS: PARTIAL THROMBOPLASTIN TIME 29.8 Sec (25.0-35.0)
[2017-06-10] MEDS ORDERED: PROPOFOL 20 ML ONE (16:01)
[2017-06-10] MEDS ORDERED: FENTAnyl 50 MCG/ML VIAL ONE ×2 (16:01→17:09)
[2017-06-10] MEDS ORDERED: MIDAZOLAM 1 MG/ML 2 ML INJ ONE (16:01)
[2017-06-10] MEDS ORDERED: ROCURONIUM 50 MG INJ ONE ×2 (16:01→17:09)
[2017-06-10] MEDS ORDERED: ROPIVACAINE 0.2% 20 ML VIAL ONE (16:02)
[2017-06-10 16:25] LABS: CALCIUM 9.2 mg/dl (8.4-10.2); CREATININE 0.54 mg/dl (0.44-1.00); POTASSIUM 3.9 mmol/L (3.5-5.1)
[2017-06-10] MEDS ORDERED: EPHEDrine SULFATE 50 MG/5 ML SYG IV PRN (16:30)
[2017-06-10] MEDS ORDERED: ONDANSETRON 4 MG INJ IV PRN (16:30)
[2017-06-10] MEDS ORDERED: OXYCODONE/ACETAMINOPHEN (5/325) TAB PO PRN (16:30)
[2017-06-10] MEDS ORDERED: morphine (1 MG/ML) 10ML SYRINGE IV PRN ×3 (16:30)
[2017-06-10] MEDS ORDERED: HYDROmorphONE (0.2 MG/ML) 10ML SYG IV PRN ×3 (16:30)
[2017-06-10] MEDS ORDERED: DIPHENHYDRAMINE 50 MG INJ IV PRN (16:30)
[2017-06-10] MEDS ORDERED: MEPERIDINE 25 MG INJ IV PRN (16:30)
[2017-06-10] MEDS ORDERED: FENTAnyl 50 MCG/ML VIAL IV PRN ×3 (16:30)
[2017-06-10] MEDS ORDERED: METOCLOPRAMIDE 10 MG INJ IV PRN (16:30)
[2017-06-10] MEDS ORDERED: BUPIVACAINE 0.25% (MPF) 30 ML INJ ONE (16:47)
[2017-06-10] MEDS ORDERED: DEXAMETHASONE 4 MG/ML 1 ML INJ ONE (17:11)
[2017-06-10] MEDS ORDERED: KETOROLAC 30 MG INJ ONE (17:11)
[2017-06-10] MEDS ORDERED: ONDANSETRON 4 MG INJ ONE (17:11)
[2017-06-10] MEDS ORDERED: METOCLOPRAMIDE 10 MG INJ ONE (17:11)
[2017-06-10] MEDS ORDERED: SUGAMMADEX SODIUM 200 MG/2 ML VIAL IV ONE (17:25)
[2017-06-10] MEDS ORDERED: HYDROCODONE/APAP (5/325) TAB PO ONE (17:30)
--- NOTE | 2017-06-10 17:32 | OPR ---
Date/Time of Note Date/Time of Note DATE: 06/10/17 TIME: 17:28 Operative Report Procedure Date: Jun 10, 2017 Preoperative Diagnosis symptomatic gallstones Postoperative Diagnosis same Operation/Procedure Performed 1. laparoscopic cholecystectomy 2. therapeutic injection subcutaneous local anesthesia Surgeon see signature line Corporate Licensed Broker none Anesthesia Type: general Estimated Blood Loss: 0 - 10 ml's Transfusion none Specimen gallbladder Grafts/Implants none Complications none Pt Condition Post Procedure: stable Indications This is a 21-year-old female with symptomatic gallstones. Patient and family members expressed desire for excision of her gallbladder. Risks alternatives benefits and percent were discussed with patient. Patient expressed understanding consents to the operation. Procedure Description Patient is taken to the OR and prepped and draped in usual sterile fashion. Surgical timeout was performed. IV antibiotics given. Infraumbilical incision was made transversely with a 15 blade. Dissection cautery was carried onto the fascia. The fascia was grasped with Amari's and divided with curved Mustafa scissors. 0 Vicryl U stitch was placed to the fascia. Davion Balloon trocar is introduced. Pneumoperitoneum is established. Midepigastric 12 mm optical trocar was placed under direct visualization. Right upper quadrant and right upper flank 5 mm optical trochars placed under direct visualization. Upon initial inspection there are some adhesions to the gallbladder which were taken down bluntly. The gallbladder was retracted in the lateral and our direction. This allowed mobilization of the lateral aspect. The cystic duct is identified and dissected out carefully. The critical view is established. The cystic duct and cystic artery were thickened. These were divided using a 35 mm echelon vascular stapler. The staple line was reinforced with clips. The gallbladder was taken off the gallbladder bed. There is good hemostasis. The gallbladder was retrieved using Endo Catch bag. Ports removed under direct visualization. 0 Vicryl U stitch was tied down. Skin is closed using skin sigifredo. Therapeutic subcutaneous local anesthesia was injected throughout the incision sites. Dry dressings were applied. Janice BURNS Jun 10, 2017 17:32
== END 2017-06-10 18:43 | disposition home or self-care (01) ==
LOC: SDS 14:32
PROVIDERS: ATTEND Surgery
DX: K80.10 Calculus of gallbladder with chronic cholecystitis without obstruction (principal)
CPT/HCPCS: 47562; 80048; 85025; 85610; 85730; 88304; J0690; J1100; J1170; J1885; J2250; J2405; J2765; J2795; J3010; Z7512; Z7610

== ENCOUNTER 2019-01-27 00:46 | Emergency (ER) | payer SELFPAY ==
[~2019-01-27] VITALS: Ht 157.5 cm; Wt 99.7 kg
[2019-01-27 00:53] VITALS: BP 124/69; PULSE 75; RESP 18; Ht 157.5 cm; Wt 99.7 kg
== END 2019-01-27 05:11 | disposition left against medical advice (07) ==
LOC: FTE 00:46
DX: Z53.21 Procedure and treatment not carried out due to patient leaving prior to being seen by health care provider (principal)

== ENCOUNTER 2019-02-12 23:14 | Emergency (ER) | payer OTHER ==
[~2019-02-12] VITALS: Ht 157.5 cm; Wt 100.7 kg
[2019-02-12 23:18] VITALS: Ht 157.5 cm; Wt 100.7 kg
[2019-02-13] MEDS ORDERED: KETOROLAC 60 MG INJ IM STA (00:48)
[2019-02-13] MEDS ORDERED: ONDANSETRON 4 MG INJ IM STA (01:07)
--- NOTE | 2019-02-13 01:07 | ERD ---
ER Documentation Chief Complaint Chief Complaint C/O RT SIDED PELVIC PAIN, VOMITING AND DIZZINESS X3 DAYS HPI Patient is a 23 years old female with PMHx of bilateral ovarian cyst presenting to the clinic for right sided abdominal and pelvic pain x 3 days. Patient admits to various NBNB emesis with last event at 5PM. Patient denies fever, chills, night sweats, bloating, diarrhea, hematochezia, melena, and urinary symptoms. Patient admits to taking Tylenol w/ Codeine. Patient rates her pain 02/07. ROS All systems reviewed and are negative except as per history of present illness. Medications Home Meds Active Scripts Phenazopyridine Hcl* (Pyridium*) 100 Mg Tab, 100 MG PO TID PRN for URINARY PAIN, #8 TAB Prov:ALIS VELEZ PA-C 02/13/19 Nitrofurantoin Monohyd Macrocr* (Macrobid*) 100 Mg Capsr, 100 MG PO BID for 7 Days, #14 CAP Prov:ALIS VELEZ PA-C 02/13/19 Allergies Allergies: Coded Allergies: Sulfa (Sulfonamide Antibiotics) (Verified Allergy, Mild, 06/10/17) PMhx/Soc Cholecystectomy and Right ovarian surgery History of Surgery: Yes (ovarian cyst removal ) Anesthesia Reaction: No Hx Neurological Disorder: No Hx Respiratory Disorders: No Hx Cardiac Disorders: No Hx Psychiatric Problems: No Hx Miscellaneous Medical Probl: No Hx Alcohol Use: No Hx Substance Use: No Hx Tobacco Use: No Smoking Status: Never smoker Physical Exam Vitals Vital Signs Date Temp Pulse Resp B/P (MAP) Pulse Ox O2 O2 Flow FiO2 Time Delivery Rate 02/13/19 99.1 63 16 118/74 99 Room Air 05:11 (89) 02/12/19 97.9 69 20 117/62 99 23:18 (80) Physical Exam Const: No acute distress Head: Atraumatic Eyes: Normal Conjunctiva ENT: Normal External Ears, Nose and Mouth. Neck: Full range of motion. No meningismus. Resp: Clear to auscultation bilaterally Cardio: Regular rate and rhythm, no murmurs Abd: Soft, Subjective tenderness to palpation of RUQ and RLQ without objective finding, non distended. Normal bowel sounds. Skin: No petechiae or rashes Back: No midline or flank tenderness Ext: No cyanosis, or edema Neur: Awake and alert Psych: Normal Mood and Affect Result Diagram: 02/13/19 0116 02/13/19 0116 Results 24 hrs Laboratory Tests Test 02/13/19 01:16 02/13/19 01:19 White Blood Count 9.8 10^3/ul Red Blood Count 4.40 10^6/ul Hemoglobin 12.6 g/dl Hematocrit 38.8 % Mean Corpuscular Volume 88.2 fl Mean Corpuscular Hemoglobin 28.6 pg Mean Corpuscular Hemoglobin Concent 32.5 g/dl Red Cell Distribution Width 12.5 % Platelet Count 263 10^3/UL Mean Platelet Volume 9.8 fl Immature Granulocytes % 0.400 % Neutrophils % 70.6 % Lymphocytes % 20.8 % Monocytes % 6.6 % Eosinophils % 1.2 % Basophils % 0.4 % Nucleated Red Blood Cells % 0.0 /100WBC Immature Granulocytes # 0.040 10^3/ul Neutrophils # 6.9 10^3/ul Lymphocytes # 2.0 10^3/ul Monocytes # 0.7 10^3/ul Eosinophils # 0.1 10^3/ul Basophils # 0.0 10^3/ul Nucleated Red Blood Cells # 0.0 10^3/ul Urine Color YELLOW Urine Clarity SLIGHTLY CLOUDY Urine pH 7.0 Urine Specific [place] 1.016 Urine Ketones NEGATIVE mg/dL Urine Nitrite NEGATIVE mg/dL Urine Bilirubin NEGATIVE mg/dL Urine Urobilinogen NEGATIVE mg/dL Urine Leukocyte Esterase 3+ [place]/ul Urine Microscopic RBC 2 /HPF Urine Microscopic WBC 5 /HPF Urine Squamous Epithelial Cells FEW /HPF Urine Hemoglobin NEGATIVE mg/dL Urine Glucose NEGATIVE mg/dL Urine Total Protein NEGATIVE mg/dl Sodium Level 138 mmol/L Potassium Level 4.0 mmol/L Chloride Level 105 mmol/L Carbon Dioxide Level 25 mmol/L Anion Gap 8 Blood Urea Nitrogen 9 mg/dl Creatinine 0.52 mg/dl Est Glomerular Filtrat Rate mL/min > 60 mL/min Glucose Level 97 mg/dl Calcium Level 9.5 mg/dl Total Bilirubin 0.3 mg/dl Direct Bilirubin 0.00 mg/dl Indirect Bilirubin 0.3 mg/dl Aspartate Amino Transf (AST/SGOT) 104 IU/L Alanine Aminotransferase (ALT/SGPT) 164 IU/L Alkaline Phosphatase 109 IU/L Total Protein 7.7 g/dl Albumin 4.5 g/dl Globulin 3.20 g/dl Albumin/Globulin Ratio 1.40 Lipase 52 U/L POC Beta HCG, Qualitative NEGATIVE Current Medications Medications Dose Sig/Joe Start Time Status Last (Trade) Ordered Route PRN Stop Time Admin Dose Reason Admin Ketorolac 60 mg ONCE STAT 02/13/19 DC 02/13/19 Tromethamine IM 00:48 01:39 (Toradol) 02/13/19 00:52 Ondansetron 4 mg ONCE STAT 02/13/19 DC 02/13/19 HCl (Zofran IM 01:07 01:39 Inj) 02/13/19 01:09 100 mg ONCE ONCE 02/13/19 DC 02/13/19 Phenazopyridi PO 02:00 02:26 ne HCl 02/13/19 02:01 (Pyridium) 1 tab ONCE ONCE 02/13/19 DC 02/13/19 Acetaminophen PO 04:00 04:38 / 02/13/19 04:01 Hydrocodone Bitart ([place] (5/325)) Procedures/MDM Patient was seen and evaluated for right sided abdominal pain. Urinalysis shows leukocyte esterase, which is significant for UTI. CBC,CMP, Lipase are unremarkable.Toradol IM and Pyridium PO given in ER with improvement of pain. Pelvic ultrasound revealed bilateral ovarian cyst. Patient is stable and ready for discharge. Patient was advised to f/u with PCP. Departure Diagnosis: Primary Impression: UTI (urinary tract infection) Urinary tract infection type: site unspecified Hematuria presence: without hematuria Qualified Codes: N39.0 - Urinary tract infection, site not specified Condition: Stable Patient Instructions: Understanding Urinary Tract Infections (UTIs) Referrals: [facility] Additional Instructions: Patient advised to return to the ED immediately for new or worsening symptoms. Patient advised to follow up with primary care provider in the next 24-48 hours. Patient verbalized understanding and agrees with treatment plan and course of action. If patient has no primary care they may follow up with [facility] [address] [place] [id number] or [facility] [address] [place] [address] or [facility] [address] [place] [address] ALIS VELEZ PA-C Feb 13, 2019 01:07
[2019-02-13] MEDS ORDERED: NITR-58 PO (01:47)
[2019-02-13] MEDS ORDERED: PHEN-537 PO (01:47)
[2019-02-13] MEDS ORDERED: PHENAZOPYRIDINE 100 MG TAB PO ONE (02:00)
[2019-02-13] MEDS ORDERED: HYDROCODONE/APAP (5/325) TAB PO ONE (04:00)
[2019-02-13 05:11] VITALS: BP 118/74; PULSE 63; RESP 16
== END 2019-02-13 05:11 | disposition home or self-care (01) ==
LOC: FTE 23:14
DX: N39.0 Urinary tract infection, site not specified (principal)
CPT/HCPCS: 36415; 76830; 76856; 80053; 81001; 81025; 83690; 85025; 96372; J1885; J2405; Z7502; Z7610